=== PATIENT | male | born 1955 | race African-American/Black ===

== ENCOUNTER → 2017-01-20 | Outpatient (CLI) | payer MEDICARE ==
[2017-01-20 10:02] LABS: Non-African American GFR(MDRD) 60 (>60 ml/min/1.73 sqM); Uric Acid 5.4 mg/dL (3.5-8.5)
[2017-01-20 10:51] LABS: ALT 18 U/L (21-72); AST 33 U/L (17-59); Blood Urea Nitrogen 15 mg/dL (9-20)
== END ==
LOC: LABWHC1 08:44
PROVIDERS: ATTEND Podiatrist
DX: M10.9 Gout, unspecified (principal)
CPT/HCPCS: 36415; 82565; 84450; 84460; 84520; 84550

== ENCOUNTER 2017-05-30 08:47 | Day surgery (SDC) | payer MEDICARE ==
[2017-05-27 13:16] VITALS: BMI 27.5
[~2017-05-30 08:47] MED LIST: LACTATED RINGERS 1,000 ML IV SCH
[2017-05-30 09:15] VITALS: RESP 18; TEMP 98
[2017-05-30] MEDS ORDERED: LACTATED RINGERS 1,000 ML IV ONE (09:16)
[2017-05-30] MEDS ORDERED: LIDOCAINE 1% 20 ML VIAL (10MG/ML) FOR IV START INTRADERMA ONE (09:16)
[2017-05-30] MEDS ORDERED: LIDOCAINE 1% INJ 10MG/ML (20 ML MDV) ONE (10:06)
[2017-05-30] MEDS ORDERED: PROPOFOL 10 MG/ML 20 ML VIAL IV ONE (10:06)
[2017-05-30 10:44] VITALS: BP 139/78; PULSE 86
--- NOTE | 2017-05-30 12:18 | P.PCN ---
Date of Procedure: 05/30/17 Preoperative Diagnosis: Postoperative Diagnosis: Procedure(s) Performed: BRIEF HISTORY: Patient is a 62-year-old pleasant white male, scheduled for an elective colonoscopy as a part of follow-up of large cecal polyp noted in November 2016. The polyp was 3 cm, broad-based and biopsy showed tubular villous adenoma. PROCEDURE PERFORMED: Colonoscopy. PREOPERATIVE DIAGNOSIS: Follow-up large cecal polyp noted in November 2016. IV sedation per Anesthesia. PROCEDURE: After informed consent was obtained, the patient, was brought into the endoscopy unit. IV sedation was administered by Anesthesia under continuous monitoring. Digital rectal examination was normal. Initially the Olympus CF- 160 flexible video colonoscope was then inserted in the rectum, gradually advanced into the cecum without any difficulty. Careful examination was performed as the scope was gradually being withdrawn. Ileocecal valve and the appendiceal orifice were visualized and appeared normal. Prep was excellent. Mucosa of the cecum, appeared normal. No residual polyp identified. The ascending colon, transverse colon, descending colon, sigmoid colon, and rectum appeared normal. Retroflexion was performed in the rectum and no lesions were seen. The patient tolerated the procedure well. IMPRESSION: Normal-appearing colon from rectum to cecum with no evidence of colorectal neoplasia. RECOMMENDATIONS: Findings of this examination were discussed with the patient as well as his family. He was advised to have a repeat surveillance colonoscopy in 3 years from now.. Implants: Indications for Procedure: Operative Findings: Description of Procedure:
== END 2017-05-30 11:06 | disposition home or self-care (01) ==
LOC: ORWHC2ENDO 08:47
PROVIDERS: ATTEND Internal Medicine Gastroenterology
DX: Z12.11 Encounter for screening for malignant neoplasm of colon (principal); Z86.010 Personal history of colon polyps; I25.2 Old myocardial infarction; I10 Essential (primary) hypertension; M10.9 Gout, unspecified; Z79.899 Other long term (current) drug therapy
CPT/HCPCS: J2001; J2704; G0105

== ENCOUNTER → 2017-08-28 | Outpatient (CLI) | payer MEDICARE ==
[2017-08-28 12:19] LABS: ALT 33 U/L (21-72); AST 28 U/L (17-59); Blood Urea Nitrogen 12 mg/dL (9-20); Non-African American GFR(MDRD) >60 (>60 ml/min/1.73 sqM)
== END | disposition home or self-care (01) ==
LOC: LABWHC1 11:33
PROVIDERS: ATTEND Podiatrist
DX: M10.9 Gout, unspecified (principal)
CPT/HCPCS: 36415; 82565; 84450; 84460; 84520; 84550

== ENCOUNTER → 2019-06-11 | Outpatient (CLI) | payer MEDICARE ==
--- NOTE | 2019-06-12 11:32 | US ---
EXAMINATION TYPE: US kidneys/renal and bladder DATE OF EXAM: 06/11/2019 COMPARISON: NONE CLINICAL HISTORY: R94.4 Abn kidney function,Z87.442 Hx kidney stones. EXAM MEASUREMENTS: Right Kidney: 9.1 x 4.5 x 4.5 cm Left Kidney: 9.6 x 4.3 x 4.9 cm Right Kidney: Small amount of hydronephrosis. Multiple probable echogenic foci visualized, largest me asuring 0.6 cm Left Kidney: No hydronephrosis. Multiple probable echogenic foci visualized, largest measuring 0.4 cm Bladder: wnl Bilateral Jets seen: Only left jet visualized No masses are identified. The urinary bladder is satisfactorily distended. Left ureteral jet is se en. IMPRESSION: Mild to moderate right-sided hydronephrosis without visualization of distal right ureter jet suggests obstructing ureter calculus. Advise urology referral. Consider renal stone protocol CT t o confirm.
== END | disposition home or self-care (01) ==
LOC: RADUSWWP 15:58
PROVIDERS: ATTEND Family Medicine
DX: N13.30 Unspecified hydronephrosis (principal); Z87.442 Personal history of urinary calculi
CPT/HCPCS: 76770

== ENCOUNTER 2021-02-19 09:44 | Day surgery (SDC) | payer MEDICARE ==
[2021-02-15 15:00] VITALS: BMI 27.6
[~2021-02-19 09:44] MED LIST changes: -LACTATED RINGERS 1,000 ML IV SCH; +LIDOCAINE 1% (10MG/ML) FOR IV START INTRADERMA PRN
[2021-02-19 10:36] VITALS: RESP 20; TEMP 98.7
[2021-02-19] MEDS: LACTATED RINGERS 1,000 ML IV SCH ×2 (10:48→11:40)
[2021-02-19] MEDS ORDERED: PROPOFOL 10 MG/ML 20 ML VIAL IV ONE (11:41)
--- NOTE | 2021-02-19 12:02 | P.PCN ---
Date of Procedure: 02/19/21 Procedure(s) Performed: BRIEF HISTORY: Patient is a 65-year-old pleasant male scheduled for an elective colonoscopy as a part of follow-up of l recurrent arge cecal polyp that was noted on an initial colonoscopy in 2016 which was 3 cm polyp that was removed and biopsy revealed tubular villous adenoma. Repeat colonoscopy in 3 months later showed no residual polyp. He had another follow-up colonoscopy in November 2020 that revealed recurrent 3 cm polyp that was removed by snare polypectomy and once again biopsy revealed tubular villous adenoma. He scheduled for a follow-up colonoscopy today.. PROCEDURE PERFORMED: Colonoscopy with snare polypectomy and argon plasma coagulation. PREOPERATIVE DIAGNOSIS: Recurrent cecal polyp.. IV sedation per Anesthesia. PROCEDURE: After informed consent was obtained, the patient, was brought into the endoscopy unit. IV sedation was administered by Anesthesia under continuous monitoring. Digital rectal examination was normal. Initially the Olympus CF-160 flexible video colonoscope was then inserted in the rectum, gradually advanced into the cecum without any difficulty. Careful examination was performed as the scope was gradually being withdrawn. Ileocecal valve and the appendiceal orifice were visualized and appeared normal. Prep was excellent. In the base of the cecum there was a 1.5 cm residual flat polyp noted which was partially removed by snare polypectomy followed by argon plasma coagulation. Mucosa of the cecum, ascending colon, transverse colon, descending colon, sigmoid colon, and rectum appeared normal. Retroflexion was performed in the rectum and no lesions were seen. The patient tolerated the procedure well. IMPRESSION: 1.5 cm flat cecal polyp on the appendiceal orifice status post polypectomy followed by argon plasma coagulation Rest of the colon appeared normal RECOMMENDATIONS: Findings of this examination were discussed with the patient as well as his family. He was advised to follow with the biopsy results. He will have a repeat colonoscopy in 6 months.
[2021-02-19 12:20] VITALS: BP 132/62; PULSE 67
== END 2021-02-19 12:44 | disposition home or self-care (01) ==
LOC: ORWHC2ENDO 09:44
PROVIDERS: ATTEND Internal Medicine Gastroenterology
DX: D12.0 Benign neoplasm of cecum (principal); I25.2 Old myocardial infarction; I10 Essential (primary) hypertension; E78.5 Hyperlipidemia, unspecified; Z86.010 Personal history of colon polyps; Z79.899 Other long term (current) drug therapy; Z97.2 Presence of dental prosthetic device (complete) (partial); Z86.73 Personal history of transient ischemic attack (TIA), and cerebral infarction without residual deficits
CPT/HCPCS: 88305; 45385; J2704; 45388

== ENCOUNTER 2021-08-15 10:22 | Day surgery (SDC) | payer MEDICARE ==
[2021-08-10 15:56] VITALS: BMI 26.2
[~2021-08-15 10:22] MED LIST changes: +LACTATED RINGERS 1,000 ML IV SCH; -LIDOCAINE 1% (10MG/ML) FOR IV START INTRADERMA PRN
[2021-08-15 11:25] VITALS: TEMP 96.8
[2021-08-15] MEDS ORDERED: LIDOCAINE 1% (10MG/ML) FOR IV START INTRADERMA ONE (11:28)
[2021-08-15] MEDS ORDERED: PROPOFOL 10 MG/ML 20 ML VIAL IV ONE (11:46)
[2021-08-15] MEDS ORDERED: LIDOCAINE 1% INJ 10MG/ML (20 ML MDV) ONE (11:46)
--- NOTE | 2021-08-15 12:11 | P.PCN ---
Date of Procedure: 08/15/21 Procedure(s) Performed: BRIEF HISTORY: Patient is a 66-year-old pleasant -[place] Citizen male scheduled for an elective colonoscopy as a part of follow-up of large cecal polyp that was initially noted in 2016 under routine screening colonoscopy. The cecal polyp was 3 cm broad-based that was removed by snare polypectomy and a repeat colonoscopy 3 months later revealed no residual polyp. He had a number surveillance colonoscopy in November of this year that revealed a 3 cm sessile polyp that was removed by snare polypectomy following which he had another follow-up colonoscopy in February of this year and was noted to have 1.5 cm residual polyp.. He scheduled for a repeat surveillance colonoscopy in 6 months PROCEDURE PERFORMED: Colonoscopy with snare polyp rectum and argon plasma coagulation. PREOPERATIVE DIAGNOSIS: Follow-up recurrent large cecal polyp. IV sedation per Anesthesia. PROCEDURE: After informed consent was obtained, the patient, was brought into the endoscopy unit. IV sedation was administered by Anesthesia under continuous monitoring. Digital rectal examination was normal. Initially the Olympus CF-160 flexible video colonoscope was then inserted in the rectum, gradually advanced into the cecum without any difficulty. Careful examination was performed as the scope was gradually being withdrawn. Ileocecal valve and the appendiceal orifice were visualized and appeared normal. Prep was poor and several areas of the colon. In the base of the cecum along the appendiceal orifice there was a 1 cm residual sessile polyp noted which was removed by snare polyp rectum he followed by argon plasma coagulation. In the ascending colon there was a 5 limited polyp that was removed by snare polypectomy. Rest of the. transverse colon, descending colon, sigmoid colon, and rectum appeared normal. Retroflexion was performed in the rectum and no lesions were seen. The patient tolerated the procedure well. IMPRESSION: 1 cm sessile cecali polyp noted and along the appendiceal orifice status post polypectomy followed by argon plasma coagulation 5 mm ascending colon polyp serous was snare polypectomy RECOMMENDATIONS: Findings of this examination were discussed with the patient as well as his family. He was advised to follow with the biopsy results and will plan a repeat colonoscopy in one year.
[2021-08-15 12:14] VITALS: PULSE 73
[2021-08-15 12:39] VITALS: BP 134/62; RESP 16
== END 2021-08-15 12:42 | disposition home or self-care (01) ==
LOC: ORWHC2ENDO 10:22
PROVIDERS: ATTEND Internal Medicine Gastroenterology
DX: Z12.11 Encounter for screening for malignant neoplasm of colon (principal); D12.2 Benign neoplasm of ascending colon; D12.0 Benign neoplasm of cecum; I10 Essential (primary) hypertension; E78.5 Hyperlipidemia, unspecified; M10.9 Gout, unspecified; Z98.890 Other specified postprocedural states; Z97.2 Presence of dental prosthetic device (complete) (partial); Z79.82 Long term (current) use of aspirin; Z79.899 Other long term (current) drug therapy
CPT/HCPCS: 88305; 45385; J2001; J2704; 45388

== ENCOUNTER 2022-11-05 08:49 | Day surgery (SDC) | payer MEDICARE ==
[~2022-11-05 08:49] MED LIST changes: -LACTATED RINGERS 1,000 ML IV SCH; +LIDOCAINE 1% (10MG/ML) FOR IV START INTRADERMA PRN
[2022-11-05] MEDS: LACTATED RINGERS 1,000 ML IV SCH ×2 (09:12→09:55)
[2022-11-05 09:30] VITALS: TEMP 97.7
[2022-11-05] MEDS ORDERED: LIDOCAINE 2% INJ 20 MG/ML (2 ML VIAL) ONE (09:56)
[2022-11-05] MEDS ORDERED: PROPOFOL 10 MG/ML 20 ML VIAL IV ONE (09:56)
--- NOTE | 2022-11-05 10:18 | P.PCN ---
Date of Procedure: 11/05/22 Procedure(s) Performed: BRIEF HISTORY: Patient is a []-year-old pleasant [] scheduled for an elective colonoscopy as a part of surveillance of prior history of colon polyps. He was diagnosed with a large cecal polyp in 2016 for which she underwent endoscopic polypectomy. He had recurrence in 2019 and was once again removed endoscopy today. Last colonoscopy in August 2021 revealed 1 cm sessile cecal polyp that was removed by snare polypectomy followed by argon plasma coagulation and biopsy revealed villous adenoma. He scheduled for repeat surveillance colonoscopy today. PROCEDURE PERFORMED: Colonoscopy with snare polypectomy and argon plasma coagulation \ PREOPERATIVE DIAGNOSIS: Follow-up cecal polyp. IV sedation per Anesthesia. PROCEDURE: After informed consent was obtained, the patient, was brought into the endoscopy unit. IV sedation was administered by Anesthesia under continuous monitoring. Digital rectal examination was normal. Initially the Olympus CF-160 flexible video colonoscope was then inserted in the rectum, gradually advanced into the cecum without any difficulty. Careful examination was performed as the scope was gradually being withdrawn. Ileocecal valve and the appendiceal orifice were visualized and appeared normal. Prep was excellent. The base of the cecum and appendiceal orifices there was a 1 cm recurrent flat cecal polyp that was removed by snare polypectomy followed by argon plasma coagulation. Rest of the mucosa of the cecum, ascending colon, transverse colon, descending colon, sigmoid colon, and rectum appeared normal. Retroflexion was performed in the rectum and no lesions were seen. The patient tolerated the procedure well. IMPRESSION: 1.5 cm flat cecal polyp site appendiceal orifice status post polypectomy followed by argon plasma coagulation. Rest of the colon appeared normal RECOMMENDATIONS: Findings of this examination were discussed with the patient as well as his family. He was advised to follow with the biopsy results and have a repeat colonoscopy in one year..
[2022-11-05 10:24] VITALS: PULSE 85; RESP 16
[2022-11-05 10:42] VITALS: BP 127/71
== END 2022-11-05 11:00 | disposition home or self-care (01) ==
LOC: ORWHC2ENDO 08:49
PROVIDERS: ATTEND Internal Medicine Gastroenterology
DX: Z12.11 Encounter for screening for malignant neoplasm of colon (principal); D12.0 Benign neoplasm of cecum; I10 Essential (primary) hypertension; E78.5 Hyperlipidemia, unspecified; Z86.010 Personal history of colon polyps; Z98.890 Other specified postprocedural states; Z79.899 Other long term (current) drug therapy
CPT/HCPCS: 88305; 45382; 45385; J2704; J2001

== ENCOUNTER 2023-02-19 10:26 | Inpatient (IN) | payer MEDICARE ==
[2023-02-14 09:19] VITALS: BMI 25.4
[~2023-02-19 10:26] MED LIST changes: +DEXAMETHASONE SOD PHOSPHATE 4 MG/ML 1 ML VIAL IV ONE; +HYDROmorphone 0.5 MG/0.5 ML SYRINGE IVP PRN; +MIDAZOLAM 2 MG/2 ML VIAL IV PRN; +ONDANSETRON 4 MG/2 ML VIAL IVP ONE; +ceFAZolin 1,000 MG in SODIUM CHLORIDE 0.9% IRRIGATIO 1,000 ML IRRIGATION PRN
[2023-02-19] MEDS: LACTATED RINGERS 1,000 ML IV SCH ×2 (11:14→17:08)
[2023-02-19] MEDS ORDERED: ONDANSETRON 4 MG/2 ML VIAL ONE (11:23)
[2023-02-19] MEDS ORDERED: NEOSTIGMINE 1 MG/ML 10 ML VIAL ONE (12:10)
[2023-02-19] MEDS ORDERED: fentaNYL (PF) 50 MCG/ML 2 ML AMP ONE (12:10)
[2023-02-19] MEDS ORDERED: ePHEDrine 50 MG/ML 1 ML VIAL ONE (12:10)
[2023-02-19] MEDS ORDERED: MIDAZOLAM 2 MG/2 ML VIAL ONE (12:10)
[2023-02-19] MEDS ORDERED: PHENYLEPHRINE-0.9% NACL SYG 1,000 MCG/10 ML SYRINGE ONE (12:10)
[2023-02-19] MEDS ORDERED: GLYCOPYRROLATE 0.2 MG/ML 2 ML VIAL ONE (12:10)
[2023-02-19] MEDS ORDERED: SUCCINYLCHOLINE CHLORIDE 200 MG/10 ML VIAL IV ONE (12:10)
[2023-02-19] MEDS ORDERED: PROPOFOL 10 MG/ML 20 ML VIAL IV ONE (12:10)
[2023-02-19] MEDS ORDERED: LIDOCAINE 2% INJ 20 MG/ML (2 ML VIAL) ONE (12:10)
[2023-02-19] MEDS ORDERED: ROCURONIUM 10 MG/ML (5 ML VIAL) IV ONE (12:10)
[2023-02-19] MEDS ORDERED: DEXAMETHASONE SOD PHOSPHATE 4 MG/ML 1 ML VIAL ONE (12:10)
[2023-02-19] MEDS ORDERED: GELATIN SPONGE,ABSORB (LARGE) 1 EACH SPONGE TOPICAL ONE (12:13)
[2023-02-19] MEDS ORDERED: LIDOCAINE 0.5%-EPI 1:200,000 50 ML VIAL SQ ONE (12:13)
[2023-02-19] MEDS ORDERED: THROMBIN (BOVINE) 5,000 UNIT VIAL TOPICAL ONE (12:13)
[2023-02-19] MEDS ORDERED: LACTATED RINGERS 1,000 ML IV ONE (13:32)
--- NOTE | 2023-02-19 13:50 | XR ---
EXAMINATION TYPE: XR cervical spine 1V DATE OF EXAM: 02/19/2023 COMPARISON: NONE HISTORY: Needle placement TECHNIQUE: Four views are submitted. FINDINGS: Limited resolution intraoperative views submitted. Post surgical instrument overlying the mid cervica l spine. Endotracheal tube noted. IMPRESSION: 1. Needle placement for localization..
[2023-02-19] MEDS ORDERED: HYDROmorphone 0.5 MG/0.5 ML SYRINGE IVP PRN (14:36)
[2023-02-19] MEDS ORDERED: BENZOCAINE/MENTHOL LOZENG 1 EACH LOZENGE MUCOUS MEM PRN (14:36)
[2023-02-19] MEDS ORDERED: SENNOSIDES-DOCUSATE SODIUM 1 EACH TAB PO PRN (14:36)
[2023-02-19] MEDS ORDERED: ONDANSETRON 4 MG/2 ML VIAL IVP PRN (14:36)
[2023-02-19] MEDS ORDERED: CYCLOBENZAPRINE 10 MG TAB PO PRN (14:36)
[2023-02-19] MEDS ORDERED: HYDROcodone/APAP 5-325MG 1 EACH TAB PO PRN (14:36)
[2023-02-19] MEDS ORDERED: ACETAMINOPHEN TAB 325 MG TAB PO PRN (14:36)
--- NOTE | 2023-02-19 14:46 | P.OP ---
Date of Procedure: 02/19/23 Preoperative Diagnosis: Severe cervical stenosis C3 4 C4 5 C5 6, cervical myelopathy, upper extremity weakness, upper extremity radiculopathy, degenerative disc disease Postoperative Diagnosis: Same Anesthesia: GETA Pathology: none sent Condition: stable Disposition: PACU Description of Procedure: BRIEF OPERATIVE NOTE Preoperative Diagnosis:Severe cervical stenosis C3 4 C4 5 C5 6, cervical myelopathy, upper extremity weakness, upper extremity radiculopathy, degenerative disc disease Postoperative Diagnosis:Severe cervical stenosis C3 4 C4 5 C5 6, cervical myelopathy, upper extremity weakness, upper extremity radiculopathy, degenerative disc disease Procedure: Anterior cervical decompression with discectomy and fusion C3 4 C4 5 C5 6 Placement of interbody graft C3 4 C4 5 C5 6 Application of anterior cervical plate C3 4 5 6 Surgeon: Dr. Horta Lead Loader: Ramesh Khan is present throughout the entire the case persistence during positioning, dissection, exposure, visualization, and all crucial elements of the case as well as closure. Anesthesia: General anesthesia per Dr. Betancourt Estimated blood loss: Approximately 75 mL Complications: None apparent Components implanted: K2M striker [place] anterior cervical plate system with a 57 mm plate and 8 screws with vikos interbody autograft bone graft 1 mL of DBX bone putty Disposition: To recovery room in good stable condition. OPERATIVE INDICATIONS The patient has had long-standing issues in their neck and upper extremities. He's been having significant weakness at his upper extremities particularly on the right side. He feels numbness tingling in his arms and was found have severe stenosis at C3 4 C4 5 and C5 6. He is having some difficulty with his dexterity and was exhibiting signs of early cervical myelopathy. His imaging correlate well with his neck and upper extremity symptoms The patient has been through conservative treatment. He is not having any prolonged benefit despite aggressive conservative care. We discussed various treatment options including surgery, and the patient wishes to proceed with surgery We discussed the risk, patient's alternatives and benefits of surgery including but not limited to, risk of bleeding risk of infection, risk of need for further surgery, risk of decreased, loss of motion, muscle function, malunion nonunion, hardware failure, nerve damage, paralysis, heart attack, and . OPERATIVE SUMMARY After discussing all the risks, patient alternatives and benefits at length, the patient elected to proceed with surgical intervention, signed informed consent, and presented for their procedure. The patient was seen and examined in the preoperative holding area and the surgical site was marked. The patient was given antibiotics and brought to the operating room. The patient was positioned on the operating room table in a supine position being careful to pad any bony prominences and pressure points. The patient was sedated and intubated by anesthesia in standard fashion. Once the airway and C- spine were stabilized the patient's arms were padded and tucked at her side, with her shoulders gently taped. The head was placed in a donut pad with the neck in good neutral alignment and position. We were careful to maintain the patient's cervical spine and good neutral alignment and position throughout. The patient was prepped and draped in a normal standard fashion. An appropriate timeout and keystone protocol performed. We were able to proceed with the surgery. The local wound area was infiltrated with local anesthetic. An incision was made transversely approximately 2-1/2 cm over the appropriate levels at C4/5. Dissection was taken down subcutaneously to the level of the platysma which was split in line with its fibers. Dissection was taken with a carotid approach, with the trachea and esophagus medial and the carotid sheath laterally. We dissected down to the anterior surface of the vertebral bodies from C3 3 to C6. Intraoperative x-ray was taken which showed a marker at the appropriate level at C4 5. With the appropriate level positively confirmed, we were able to proceed with discectomy at the appropriate levels. All of the operative levels were exposed appropriately. The patient had all their twitches back, and there was no evidence of recurrent laryngeal issue. The wound was copiously irrigated and suctioned dry as had been done periodically throughout the case. At the appropriate level/levels, starting at C5 6 and then moving C4 5 and then C3 4, I established an annulotomy with an 11 blade scalpel. A discectomy was performed with a combination of pituitary rongeurs, curettes, a high-speed bur, and Kerrison rongeurs. The posterior longitudinal ligament was taken down as were any posterior osteophytes. This gave good central and bilateral foraminal decompression. There is no evidence of any dural tear or leak. The endplates were prepared with a high-speed bur. With the endplates in good parallel position, I was able to size for the appropriate size interbody graft. The wound was irrigated and suctioned dry the graft was prepared and malleted into position. It had good alignment and position with the anterior surface flush with the anterior surface of the vertebral bodies. This was done similarly the appropriate levels at C5 6 and then at C4 5 and C3 4. With the grafts intact, I was able to measure and contour and appropriate sized plate. The plate was positioned at the midline over the appropriate levels at C3 4 5 and 6. Screw holes were established with a hand drill and drill guide. Screws were placed in good alignment and position with excellent bony purchase. They were seated under the locking device. The construct was checked and found to be stable. Intraoperative x-ray was taken which showed good alignment and position of the implants at the appropriate levels. There was no evidence of any dural tear or leak. Good hemostasis was maintained. The wound was copiously irrigated and suctioned dry as had been done periodically throughout the case. The platysma was closed with absorbable suture. The subcutaneous tissue was closed. The subcuticular tissue was closed with absorbable suture. The wound was cleaned and dried and dressed appropriately. A soft cervical collar was placed appropriately. The patient was woken up by anesthesia, extubated, transferred back gently to their hospital bed and brought to the recovery room in good stable condition. The patient will be admitted to the hospital for appropriate postoperative care, medical management and monitoring. We will continue to follow them closely about the postoperative course.
[2023-02-19] MEDS: SODIUM CHLORIDE 0.9% 1,000 ML IV SCH (18:16)
[2023-02-19] MEDS ORDERED: amLODIPine 5 MG TAB PO SCH (21:00)
[2023-02-19] MEDS ORDERED: ATORVASTATIN 40 MG TAB PO SCH (21:00)
[2023-02-20] MEDS: SODIUM CHLORIDE 0.9% 1,000 ML IV SCH (04:47)
[2023-02-20] MEDS ORDERED: LEVOTHYROXINE 50 MCG TAB PO SCH (06:30)
[2023-02-20 07:06] VITALS: BP 137/81; PULSE 90; RESP 18; TEMP 99
[2023-02-20] MEDS: LACTATED RINGERS 1,000 ML IV SCH (07:54)
[2023-02-20] MEDS ORDERED: SENNOSIDES-DOCUSATE SODIUM 1 EACH TAB PO SCH (09:00)
[2023-02-20] MEDS ORDERED: ASCORBIC ACID 500 MG TAB PO SCH (09:00)
[2023-02-20] MEDS ORDERED: allopurinoL 100 MG TAB PO SCH (09:00)
[2023-02-20] MEDS ORDERED: CHOLECALCIFEROL 25 MCG (1000 IU) TABLET PO SCH (09:00)
[2023-02-20] MEDS ORDERED: ZINC SULFATE 220 MG CAP PO SCH (09:00)
[2023-02-20] MEDS ORDERED: lisinopriL 5 MG TAB PO SCH (09:00)
[2023-02-20] MEDS ORDERED: CYANOCOBALAMIN 500 MCG TAB PO SCH (09:00)
[2023-02-20] MEDS ORDERED: NON FORMULARY DRUG (Ubidecarenone [Co Q-10] 100 MG Capsule) PO SCH (09:00)
--- NOTE | 2023-02-20 09:12 | P.DS ---
Providers Date of admission: 02/19/23 10:26 Attending physician: Luisito Horta Consults: 02/19/23 14:36 Consult Physician Routine Consulting Provider: Niharika Downing Consult Reason/Comments: Medical management Do you want consulting provider notified?: Yes Primary care physician: [facility] Course: The patient presented on the day of admission as per their operative note. He underwent anterior cervical decompression with discectomy and fusion for his myelopathy with upper extremity weakness and cervical stenosis. He says he's feeling quite good. He feels his arms are doing better subjectively. He feels comfortable. He is tolerating his diet. Physical Exam The incision site is clean dry and intact. There is no erythema no drainage. There is no purulence no evidence of infection. His neck is soft and supple. Abdomen soft and nontender. Chest has good excursion with deep inspiration and expiration. The patient has active and passive range of motion intact at the upper and lower extremities. There is no acute change in neurologic status. He has good motion in his upper extremities but still seems to have some weakness around his hands and fingers Hospital Course Postoperative day #1 status post anterior cervical decompression with discectomy and fusion C3 4 C4 5 C5 6 for severe cervical stenosis with upper extremity radiculopathy and weakness. The patient has been making good progress postoperatively. They have completed the prophylactic antibiotics without any signs or symptoms of infection. The patient has been able to advance their diet, and is tolerating diet adequately. The pain was initially controlled with IV medications and is now controlled appropriately with oral medications. The patient has been able to increase their mobilization. The patient has progressed appropriately. I think they are in good stable condition for discharge today. They will be sent home with appropriate prescriptions. I answered their questions to the best of my ability in a language that they can understand and they are agreeable with the plan. They will follow up as directed. Patient Condition at Discharge: Good Plan - Discharge Summary Discharge Rx Participant: No New Discharge Prescriptions: New traMADol HCl [Ultram] 50 mg PO Q4HR PRN 3 Days #18 tab PRN Reason: Pain No Action amLODIPine BESYLATE [Norvasc] 5 mg PO DIRECTED Zinc 50 mg PO DAILY Ubidecarenone [Co Q-10] 200 mg PO DAILY Cholecalciferol [Vitamin D3 (25 Mcg = 1000 Iu)] 50 mcg PO DAILY Atorvastatin [Lipitor] 40 mg PO HS Ascorbic Acid [Vitamin C] 1,000 mg PO DAILY lisinopriL [Zestril] 5 mg PO DAILY Levothyroxine Sodium [Synthroid] 50 mcg PO DAILY Cyanocobalamin [Vitamin B-12] 500 mcg PO DAILY Ginseng 100 mg PO DAILY Cider Vinegar [Apple Cider Vinegar] 480 mg PO DAILY allopurinoL 100 mg PO DAILY Discharge Medication List amLODIPine BESYLATE [Norvasc] 5 mg PO DIRECTED 05/27/17 [History] Ascorbic Acid [Vitamin C] 1,000 mg PO DAILY 02/15/21 [History] Atorvastatin [Lipitor] 40 mg PO HS 02/15/21 [History] Ubidecarenone [Co Q-10] 200 mg PO DAILY 02/15/21 [History] Zinc 50 mg PO DAILY 02/15/21 [History] Cholecalciferol [Vitamin D3 (25 Mcg = 1000 Iu)] 50 mcg PO DAILY 02/14/23 [History] Cider Vinegar [Apple Cider Vinegar] 480 mg PO DAILY 02/14/23 [History] Cyanocobalamin [Vitamin B-12] 500 mcg PO DAILY 02/14/23 [History] Ginseng 100 mg PO DAILY 02/14/23 [History] Levothyroxine Sodium [Synthroid] 50 mcg PO DAILY 02/14/23 [History] allopurinoL 100 mg PO DAILY 02/14/23 [History] lisinopriL [Zestril] 5 mg PO DAILY 02/14/23 [History] traMADol HCl [Ultram] 50 mg PO Q4HR PRN 3 Days #18 tab 02/20/23 [Rx] Follow up Appointment(s)/Referral(s): Luisito Horta DO [Doctor of Osteopathic Medicine] - 2 Weeks Activity/Diet/Wound Care/Special Instructions: Keep site clean. May shower with waterproof Tegaderm intact. Do not soak in a tub. After 72 hours postoperatively, patient May remove dressing and then may shower with area uncovered. Leave glue intact and allow it to fray off on its own. May ambulate as tolerated. Avoid heavy or rigorous activity. No repetitive bending twisting or lifting. No overhead work.
--- NOTE | 2023-02-20 14:45 | XR ---
EXAMINATION TYPE: XR cervical spine 1V DATE OF EXAM: 02/19/2023 COMPARISON: NONE HISTORY: Hardware placement TECHNIQUE: One crosstable intraoperative lateral view FINDINGS: ET tube is seen and there is some postsurgical change in near-anatomic alignment. Soft tiss ue calcification or ossification posteriorly. IMPRESSION: Postop
--- NOTE | 2023-02-21 15:23 | P.CONS ---
History of Present Illness - Reason for Consult Consult date: 02/20/23 Medical management postop cervical decompression with discectomy and fusion - History of Present Illness This is a very pleasant 67-year-old male who was admitted under orthopedic services Dr. Horta and had been following him outpatient and underwent presurgical clearance and underwent anterior cervical decompression with discectomy and fusion for his myelopathy with upper extremity weakness and cervical stenosis. Patient is postop day 1 and does have soft collar noted and has been up and walking multiple times in the halls reporting no pain. Patient reports he feels well and extremely anxious about going home. Patient has been cleared by orthopedics awaiting medical clearance. Patient reports he follows with Dr. Aristides Downing in the outpatient setting with a past medical history of CVA/TIA, hyperlipidemia, hypertension, myocardial infarction, and gout. Review Of Systems: Constitutional: No fever, no chills, no night sweats. No weight change. No weakness, fatigue or lethargy. No daytime sleepiness. EENT: No headache. No blurred vision or double vision, no loss of vision. No loss of Hearing, no ringing in the ears, no dizziness. No nasal drainage or congestion. No epistaxis. No sore throat. Lungs: No shortness of breath, cough, no sputum production. No wheezing. Cardiovascular: No chest pain, no lower extremity edema. No palpitations. No paroxysmal nocturnal dyspnea. No orthopnea. No lightheadedness or dizziness. No syncopal episodes. Abdominal: No abdominal pain. No nausea, vomiting. No diarrhea. No constipation. No bloody or tarry stools.. No loss of appetite. Genitourinary: No dysuria, increased frequency, urgency. No urinary retention. Musculoskeletal: No myalgias. No muscle weakness, no gait dysfunction, no frequent falls. No back pain. No neck pain. Integumentary: No wounds, no lesions. No rash or pruritus. No unusual bruising. No change in hair or nails. Neurologic: No aphasia. No facial droop. No change in mentation. No head injury. No headache. No paralysis. No paresthesia. Psychiatric: No depression. No anxiety. No mood swings. Endocrine: No abnormal blood sugars. No weight change. No excessive sweating or thirst. No cold intolerance. PHYSICAL EXAMINATION: GENERAL: The patient is alert and oriented x4, Well developed, well nourished. HEENT: Pupils are round and equally reacting to light. EOMI. no scleral icterus. No conjunctival pallor. Normocephalic, atraumatic. No pharyngeal erythema. No thyromegaly. Soft collar noted on the neck with surgical dressing dry and intact anteriorly CARDIOVASCULAR: S1 and S2 muffled PULMONARY: Breath sounds are clear to auscultation with no wheezing or rhonchi noted ABDOMEN: soft. Nontender on exam. non-distended, normoactive bowel sounds. No palpable organomegaly. MUSCULOSKELETAL: No joint swelling or deformity. EXTREMITIES: No cyanosis, clubbing, or pedal edema. NEUROLOGICAL: Gross neurological examination did not reveal any focal deficits. Diffuse weakness SKIN: No rashes. Assessment: Status post anterior cervical decompression with discectomy and fusion History of myelopathy with upper extremity weakness and cervical stenosis History of CVA/TIA Hyperlipidemia hypertension History of myocardial infarction in his 20s history of gout GI prophylaxis DVT prophylaxis Full code Plan: Recommend to continue with current medications and management per orthopedic se rvices. Patient is postop day 1 and reports to feeling well and is being discharged. Patient reports he underwent presurgical clearance with his primary care provider Dr. Hawk and has been following with Dr. Horta outpatient Patient continues with soft collar and would recommend continue along with restrictions if any per orthopedics. Encourage the patient to follow-up with primary care provider as well as keeping follow-up orthopedic appointment. Patient is medically stable for discharge today. Thank you kindly for this consultation and we will continue to follow during hospitalization. The impression and plan of care has been dictated by Zakiya Mendez, nurse practitioner as directed. Dr. Nolberto MD I have performed a history and examination and MDM of this patient, discussed the same with the dictator, and agree with the dictator's assessment and plan as written ,documented as a scribe. Based on total visit time, I have performed more than 50% of the visit. Any additional findings or plans will be noted. Past Medical History Past Medical History: CVA/TIA, Hyperlipidemia, Hypertension, Myocardial In farction (NH), Thyroid Disorder Additional Past Medical History / Comment(s): states "mild heart attack in my 20's"., TIA age 20's, gout, states jaundice with kidney failure & blood transfusion at ., states weakness in hands. Last Myocardial Infarction Date:: unknown History of Any Multi-Drug Resistant Organisms: None Reported Past Surgical History: Joint Replacement, Orthopedic Surgery, Tonsillectomy Additional Past Surgical History / Comment(s): total right knee, arthroscopy right shoulder., pain clinic procedures with "burnt nerves in neck" . heel spur rt foot, little toes sravanthi feet "bone removed", circumcision at 12 yrs old., colonoscopy with polyps. Past Anesthesia/Blood Transfusion Reactions: No Reported Reaction Past Psychological History: No Psychological Hx Reported Additional Psychological History / Comment(s): Hx "suicidal attempt in my late 20's, no issues now." Smoking Status: Never smoker Past Alcohol Use History: None Reported Additional Past Alcohol Use History / Comment(s): no alcohol for over 40 years. Past Drug Use History: None Reported - Past Family History Mother Family Medical History: No Reported History Sister(s) Family Medical History: Cancer, Myocardial Infarction (NH) Brother(s) Family Medical History: Congestive Heart Failure (CHF), Myocardial Infarction (NH) Medications and Allergies Home Medications Medication Instructions Recorded Confirmed Type amLODIPine BESYLATE [Norvasc] 5 mg PO DIRECTED 05/27/17 02/19/23 History Ascorbic Acid [Vitamin C] 1,000 mg PO DAILY 02/15/21 02/19/23 History Atorvastatin [Lipitor] 40 mg PO HS 02/15/21 02/19/23 History Ubidecarenone [Co Q-10] 200 mg PO DAILY 02/15/21 02/19/23 History Zinc 50 mg PO DAILY 02/15/21 02/19/23 History Cholecalciferol [Vitamin D3 (25 50 mcg PO DAILY 02/14/23 02/19/23 History Mcg = 1000 Iu)] Cider Vinegar [Apple Cider Vinegar] 480 mg PO DAILY 02/14/23 02/19/23 History Cyanocobalamin [Vitamin B-12] 500 mcg PO DAILY 02/14/23 02/19/23 History Ginseng 100 mg PO DAILY 02/14/23 02/19/23 History Levothyroxine Sodium [Synthroid] 50 mcg PO DAILY 02/14/23 02/19/23 History allopurinoL 100 mg PO DAILY 02/14/23 02/19/23 History lisinopriL [Zestril] 5 mg PO DAILY 02/14/23 02/19/23 History traMADol HCl [Ultram] 50 mg PO Q4HR PRN 3 Days #18 tab 02/20/23 Rx Allergies Allergy/AdvReac Type Severity Reaction Status Date / Time No Known Allergies Allergy Verified 02/19/23 10:51 Physical Exam Vitals: Vital Signs Temp Pulse Resp BP Pulse Ox 02/20/23 07:04 99.0 F 90 18 137/81 02/20/23 01:50 97.4 F L 97 16 120/76 97 02/19/23 20:36 98.1 F 103 H 18 127/83 02/19/23 20:00 106 H 02/19/23 17:27 90 16 138/83 96 02/19/23 16:41 97.6 F 102 H 16 141/82 98 02/19/23 15:45 83 20 151/74 95 02/19/23 15:26 93 20 146/73 96 02/19/23 15:11 88 20 133/84 98 02/19/23 14:56 97.5 F L 80 12 134/67 100 02/19/23 11:00 97.4 F L 91 16 146/88 99 Intake and Output 02/19/23 02/20/23 02/20/23 22:59 06:59 14:59 Intake Total 750 Output Total 200 150 Balance -200 600 Intake: Intake, IV Titration 750 Amount Sodium Chloride 0.9% 1, 750 000 ml @ 75 mls/hr IV . [id number] [facility] Rx#:[id number] Output: Urine 200 150 Other: # Voids 1 Weight 83 kg
== END 2023-02-20 10:24 | disposition home or self-care (01) | DRG 472 ==
LOC: 2ORMAIN 10:26 → EDSTATUS 11:45 → 4SSUR 15:58
PROVIDERS: ADMIT Orthopaedic Surgery Orthopaedic Surgery of the Spine; ATTEND Orthopaedic Surgery Orthopaedic Surgery of the Spine
PROC: 0RB30ZZ Excision of Cervical Vertebral Disc, Open Approach (ICD-10-PCS; principal; 2023-02-19 11:45)
PROC: 0RG20K0 Fusion of 2 or more Cervical Vertebral Joints with Nonautologous Tissue Substitute, Anterior Approach, Anterior Column, Open Approach (ICD-10-PCS; principal; 2023-02-19 11:45)
DX: M48.02 Spinal stenosis, cervical region (principal); M47.12 Other spondylosis with myelopathy, cervical region; M50.01 Cervical disc disorder with myelopathy, high cervical region; M47.22 Other spondylosis with radiculopathy, cervical region; M50.11 Cervical disc disorder with radiculopathy, high cervical region; M43.12 Spondylolisthesis, cervical region; I10 Essential (primary) hypertension; E78.5 Hyperlipidemia, unspecified; I25.2 Old myocardial infarction; E66.3 Overweight; Z68.25 Body mass index [BMI] 25.0-25.9, adult; E07.9 Disorder of thyroid, unspecified; M10.9 Gout, unspecified; Z79.890 Hormone replacement therapy; Z79.899 Other long term (current) drug therapy; Z86.73 Personal history of transient ischemic attack (TIA), and cerebral infarction without residual deficits; Z96.651 Presence of right artificial knee joint
CPT/HCPCS: 72020; 86850; 86900; 86901